=== PATIENT | male | born 2000 | race Caucasian/White ===

== ENCOUNTER 2021-02-17 11:06 | Emergency (ER) | payer OTHER ==
[~2021-02-17] VITALS: Ht 188 cm; Wt 91.3 kg
[2021-02-17] MEDS ORDERED: NEOMY/BACITR/POLYMYXIN OINT PACKET. TP ONE (11:30)
[2021-02-17] MEDS ORDERED: LIDOCAINE 1% PF 30 ML VIAL. INJ ONE (11:30)
[2021-02-17] MEDS ORDERED: DOXY100C2 PO (12:26)
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
[2021-02-17 12:37] VITALS: BP 132/70
== END 2021-02-17 12:38 | disposition home or self-care (01) ==
LOC: ER 11:06
DX: S61.411A Laceration without foreign body of right hand, initial encounter (principal); W25.XXXA Contact with sharp glass, initial encounter; Y93.89 Activity, other specified; Y92.89 Other specified places as the place of occurrence of the external cause; Y99.8 Other external cause status
CPT/HCPCS: 12002; 73120; 99282

== ENCOUNTER → 2021-08-15 | Outpatient (CLI) | payer OTHER ==
[~2021-08-15] MED LIST: DOXY100C3 PO
--- NOTE | 2021-08-15 16:26 | RAD ---
Study: XR LT TIBIA + FIBULA Indication: Pain. Football injury. Comparison: None. Findings: The tibia and fibula are intact. Mild cortical thickening of the distal fibular diaphysis approximate ly 15 to 16 cm cephalad to the tip of the lateral malleolus is favored physiologic/developmental. No periosteal reaction. The partially assessed knee and ankle joints are within normal limits. Radiograp hically unremarkable soft tissues. Impression: No acute radiographic abnormality of the tibia or fibula. Electronically signed by: PINA VIEIRA MD (08/15/2021 4:24 PM) [facility]
== END ==
LOC: PMG 15:52
PROVIDERS: ATTEND Nurse Practitioner Family
DX: M79.605 Pain in left leg (principal)
CPT/HCPCS: 73590